=== PATIENT | male | born 1935 | race Caucasian/White ===

== ENCOUNTER 2019-10-04 11:11 | Inpatient (IN) ==
[2019-10-04 13:08] LABS: INR 1.7; Prothrombin Time 19.8 Seconds (9.4-12.1)
[2019-10-04 15:18] LABS: Hematocrit 37.3 % (37.5-50.1); Hemoglobin 12.4 g/dL (12.9-16.9); Mean Corpuscular HGB Conc 33.2 g/dL (31.6-35.5); Mean Corpuscular Hemoglobin 30.5 pg (28.0-33.3); Mean Corpuscular Volume 91.9 fL (83.0-100.0); Mean Platelet Volume 11.2 fL (9.4-12.4); Platelet Count 225 K/mcL (140-400); Red Blood Count 4.06 M/mcL (4.19-5.50); Red Cell Distribution Width 14.3 % (11.5-14.5); White Blood Count 9.2 K/mcL (4.3-11.1)
[2019-10-04 15:36] LABS: BUN/Creatinine Ratio 20 (6-26); Blood Urea Nitrogen 23 mg/dL (8-23); Calcium 9.5 mg/dL (8.6-10.3); Carbon Dioxide 28 mEq/L (23-29); Chloride 100 mEq/L (98-107); Glucose 118 mg/dL (70-105); Osmolality,Calculated 289 (280-300); Potassium 4.3 mEq/L (3.5-5.1); Sodium 137 mEq/L (136-145); eGFR For African Americans > 60 (> 60); eGFR For Non-African Americans 60 (> 60)
[2019-10-04] MEDS ORDERED: Naloxone 0.4 MG/ML INJ IVP PRN (16:01)
[2019-10-04] MEDS ORDERED: *HR* OxyCODONE/APAP 5/325 TABLET PO PRN (16:09)
[2019-10-04] MEDS ORDERED: Nitroglycerin 0.4 MG TAB.SUBL SL PRN ×2 (17:07→17:23)
[2019-10-04] MEDS ORDERED: *HR* Rivaroxaban 10 MG TABLET PO SCH (20:15)
[2019-10-04] MEDS: Famotidine 20 MG TABLET PO SCH (20:54)
[2019-10-04] MEDS ORDERED: Famotidine 20 MG TABLET PO SCH (21:00)
[2019-10-04] MEDS: traMADol 50 MG TABLET PO PRN (21:02)
[2019-10-04] MEDS: Ondansetron ODT 4 MG TAB.RAPDIS PO PRN (21:02)
[2019-10-05] MEDS: traMADol 50 MG TABLET PO PRN (07:55)
[2019-10-05] MEDS: Famotidine 20 MG TABLET PO SCH ×2 (07:55→20:39)
[2019-10-05] MEDS: Losartan/HCTZ 50-12.5 TABLET PO SCH (07:55)
[2019-10-05] MEDS: Finasteride 5 MG TABLET PO SCH (07:55)
[2019-10-05] MEDS ORDERED: Metoprolol XL (24 HR) Succ 50 MG TAB.ER.24H PO SCH (09:00)
[2019-10-05 10:35] LABS: BUN/Creatinine Ratio 19 (6-26); Basophils % 0.5 %; Blood Urea Nitrogen 20 mg/dL (8-23); Calcium 9.2 mg/dL (8.6-10.3); Carbon Dioxide 26 mEq/L (23-29); Chloride 101 mEq/L (98-107); Eosinophils # 0.1 K/mcL (0.0-0.6); Eosinophils % 1.6 %; Glucose 104 mg/dL (70-105); Hematocrit 35.6 % (37.5-50.1); Immature Granulocytes % 0.3 % (0-4); Lymphocytes # 0.8 K/mcL (0.6-4.6); Lymphocytes % 10.7 %; Mean Corpuscular HGB Conc 33.7 g/dL (31.6-35.5); Mean Corpuscular Hemoglobin 30.8 pg (28.0-33.3); Mean Corpuscular Volume 91.3 fL (83.0-100.0); Mean Platelet Volume 11.3 fL (9.4-12.4); Monocytes # 0.6 K/mcL (0.0-1.3); Monocytes % 8.2 %; Neutrophils # 6.1 K/mcL (1.6-8.9); Osmolality,Calculated 283 (280-300); Platelet Count 206 K/mcL (140-400); Potassium 3.9 mEq/L (3.5-5.1); Red Cell Distribution Width 14.1 % (11.5-14.5); Segmented Neutrophils % 78.7 %; Sodium 135 mEq/L (136-145); White Blood Count 7.7 K/mcL (4.3-11.1); eGFR For African Americans > 60 (> 60); eGFR For Non-African Americans > 60 (> 60)
[2019-10-05] MEDS ORDERED: *HR* Dextrose 50 % in Water (Syg) 50 ML SYRINGE IVP PRN (10:56)
[2019-10-05] MEDS ORDERED: Dextrose Gel 15 GM/37.5 ML TUBE PO PRN ×2 (10:56)
[2019-10-05] MEDS ORDERED: D5% in Water 1,000 ML IVC PRN (10:56)
[2019-10-05] MEDS: *HR* OxyCODONE/APAP 5/325 TABLET PO PRN (13:20)
[2019-10-05] MEDS: *HR* Rivaroxaban 15 MG TABLET PO SCH (18:01)
[2019-10-05] MEDS: Potassium Chloride Elixir 20 MEQ/15 ML UDC PO SCH (20:41)
[2019-10-06] MEDS: Finasteride 5 MG TABLET PO SCH (09:18)
[2019-10-06] MEDS: Aspirin Enteric Coated 81 MG Tablet PO SCH (09:18)
[2019-10-06] MEDS: traMADol 50 MG TABLET PO PRN ×2 (09:18→17:54)
[2019-10-06] MEDS: Losartan/HCTZ 50-12.5 TABLET PO SCH (09:19)
[2019-10-06] MEDS: Potassium Chloride Elixir 20 MEQ/15 ML UDC PO SCH ×2 (09:19→20:32)
[2019-10-06] MEDS: Famotidine 20 MG TABLET PO SCH ×2 (09:19→20:32)
[2019-10-06] MEDS: *HR* Rivaroxaban 15 MG TABLET PO SCH (16:10)
[2019-10-07] MEDS: Aspirin Enteric Coated 81 MG Tablet PO SCH (08:07)
[2019-10-07] MEDS: Losartan/HCTZ 50-12.5 TABLET PO SCH (08:07)
[2019-10-07] MEDS: Famotidine 20 MG TABLET PO SCH ×2 (08:07→20:25)
[2019-10-07] MEDS: Finasteride 5 MG TABLET PO SCH (08:08)
[2019-10-07] MEDS: Potassium Chloride Elixir 20 MEQ/15 ML UDC PO SCH ×2 (08:08→20:25)
[2019-10-07] MEDS: Ondansetron ODT 4 MG TAB.RAPDIS PO PRN (10:23)
[2019-10-07] MEDS: *HR* Rivaroxaban 15 MG TABLET PO SCH (17:50)
[2019-10-08 06:01] LABS: Basophils % 0.5 %; Eosinophils # 0.3 K/mcL (0.0-0.6); Eosinophils % 4.1 %; Hematocrit 37.3 % (37.5-50.1); Hemoglobin 12.3 g/dL (12.9-16.9); Immature Granulocytes % 0.4 % (0-4); Lymphocytes # 0.9 K/mcL (0.6-4.6); Lymphocytes % 12.1 %; Mean Corpuscular Hemoglobin 30.1 pg (28.0-33.3); Mean Corpuscular Volume 91.4 fL (83.0-100.0); Monocytes # 0.5 K/mcL (0.0-1.3); Monocytes % 6.6 %; Neutrophils # 5.6 K/mcL (1.6-8.9); Platelet Count 224 K/mcL (140-400); Red Blood Count 4.08 M/mcL (4.19-5.50); Red Cell Distribution Width 13.9 % (11.5-14.5); Segmented Neutrophils % 76.3 %; White Blood Count 7.3 K/mcL (4.3-11.1)
[2019-10-08] MEDS: Losartan/HCTZ 50-12.5 TABLET PO SCH (09:08)
[2019-10-08] MEDS: Finasteride 5 MG TABLET PO SCH (09:08)
[2019-10-08] MEDS: Aspirin Enteric Coated 81 MG Tablet PO SCH (09:08)
[2019-10-08] MEDS: *HR* OxyCODONE/APAP 5/325 TABLET PO PRN (09:08)
[2019-10-08] MEDS: Famotidine 20 MG TABLET PO SCH (09:09)
[2019-10-08] MEDS: Potassium Chloride Elixir 20 MEQ/15 ML UDC PO SCH (09:09)
[2019-10-08 11:23] VITALS: BP 100/63
== END 2019-10-08 16:00 | DRG 551 ==
LOC: 3NENU 11:11 → EMEROOARM 11:11 → SUATTDRO 15:26 → 3NENU 18:27 → UNDODISIN 10-08 14:34
PROVIDERS: ADMIT Internal Medicine; ATTEND Internal Medicine